=== PATIENT | female | born 1995 | race Two or more races ===

== ENCOUNTER 2019-08-04 15:03 | Emergency (ER) | payer OTHER ==
[~2019-08-04] VITALS: Ht 157.5 cm; Wt 46.3 kg
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
[2019-08-04 17:22] VITALS: BP 101/63
[2019-08-04 17:24] LABS: BILIRUBIN,URINE NEGATIVE (NEG); CLARITY,URINE CLEAR; COLOR,URINE YELLOW; NITRITE,URINE NEGATIVE (NEG); PH,URINE 6.5 (<5.0-8.0); PROTEIN,URINE NEGATIVE (NEG-TRACE)
[2019-08-04 17:29] LABS: BACTERIA,URINE 0 /HPF (0-FEW); RBC,URINE 0 /HPF (0-2); SQUAMOUS EPITHELIAL CELL,UR OCC /LPF; WBC,URINE 0 /HPF (0-4)
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
[2019-08-04] MEDS ORDERED: IBUP-1007 PO (18:19)
== END 2019-08-04 18:39 | disposition home or self-care (01) ==
LOC: ER 15:03
DX: R10.32 Left lower quadrant pain (principal); G89.11 Acute pain due to trauma; V49.59XA Passenger injured in collision with other motor vehicles in traffic accident, initial encounter; Y92.488 Other paved roadways as the place of occurrence of the external cause; Y93.89 Activity, other specified; Y99.8 Other external cause status
CPT/HCPCS: 74176; 81001; 81025; 99284-25